=== PATIENT | male | born 1995 | race Caucasian/White ===

== ENCOUNTER 2019-09-22 22:05 | Emergency (ER) | payer OTHER ==
[~2019-09-22] VITALS: Ht 162.6 cm; Wt 68.0 kg
[2019-09-22 22:05] VITALS: BP 134/76
--- NOTE | 2019-09-22 22:05 | NUR ---
PT GRACIELA ALS. TAKEN TO BED 4
--- NOTE | 2019-09-22 22:10 | NUR ---
BROUGHT IN BY AMBULANCE , FOUND IN SOMEONES YARD, BY STANDER CALLED 911, WITH SLURRED SPEECH.PATIENT ETOH
--- NOTE | 2019-09-22 22:22 | NUR ---
Dr. Zhang examining patient.
[2019-09-22] MEDS ORDERED: NACL 0.9% 1,000 ML IV ONE (22:25)
[2019-09-22 22:45] LABS: BASOPHILS # (AUTO) 0.1 K/uL (0.00-0.22); BASOPHILS % (AUTO) 0.6 % (0.0-2.0); EOSINOPHILS # (AUTO) 0.1 K/uL (0-0.4); EOSINOPHILS % (AUTO) 0.7 % (0.0-4.0); HEMATOCRIT 48.4 % (36-52); HEMOGLOBIN 16.6 g/dL (12.0-18.0); LYMPHOCYTES # (AUTO) 2.4 K/uL (2.0-11.5); MEAN CORPUSCULAR HEMOGLOBIN 32 pg (27-31); MEAN CORPUSCULAR HGB CONC 34 g/dL (33-37); MONOCYTES # (AUTO) 0.6 K/uL (0.8-1.0); MONOCYTES % (AUTO) 6.1 % (1.7-9.3); NEUTROPHILS % (AUTO) 66.6 % (42.2-75.2); PLATELET COUNT (AUTO) 261 K/uL (140-450); RED BLOOD CELL COUNT(AUTO) 5.26 MIL/uL (4.20-6.10); RED CELL DISTRIBUTION WIDTH 13.4 % (11.6-13.7)
[2019-09-22 23:09] LABS: ALBUMIN 4.8 g/dL (3.4-5.0); ANION GAP 14.8 (8-16); ASPARTATE AMINOTRANSFERASE 13 U/L (15-37); CARBON DIOXIDE 26.6 mmol/L (21-32); CHLORIDE 106 mmol/L (98-107); CREATININE 0.7 mg/dL (0.6-1.3); GFR ARICAN-AMERICAN 181 mL/min (>90); GLUCOSE 109 mg/dL (74-106); POTASSIUM 3.4 mmol/L (3.5-5.1); SODIUM SERUM 144 mmol/L (136-145); TOTAL BILIRUBIN 0.4 mg/dL (0.0-1.0); UREA NITROGEN, BLOOD 10 mg/dL (7-18)
[2019-09-22 23:23] LABS: SALICYLATE < 2.8 mg/dL (2.8-20.0)
[2019-09-22 23:24] LABS: ACETAMINOPHEN < 0.5 ug/ml (10-30)
--- NOTE | 2019-09-23 00:05 | NUR ---
RESULTS BACK AND NOTED BY ERMD AND FOR D/C
[2019-09-23 00:25] LABS: BARBITURATE, URINE NEG. ng/ml (NEG <=200); BENZODIAZEPINE, URINE NEG. ng/mL (NEG <=200); CANNABINOID, URINE POS. ng/mL (NEG <=50); COCAINE, URINE NEG. ng/mL (NEG <=300); OPIATE, URINE NEG. ng/mL (NEG <=2000); PHENCYCLIDINE SCREEN,URINE NEG. ng/mL (NEG <=25)
[2019-09-23 00:35] VITALS: BP 134/76
--- NOTE | 2019-09-23 00:35 | NUR ---
Patient discharged with v/s stable. Written and verbal after care instructions given and explained. Patient verbalized understanding. Ambulatory with steady gait. All questions addressed prior to discharge. Advised to follow up with PMD.
--- NOTE | 2019-09-23 11:52 | NUR ---
Late entry. Confirmed with RN that 0.9 NS IV completed at 2341
== END 2019-09-23 00:35 | disposition home or self-care (01) ==
LOC: MED 22:05
DX: F10.129 Alcohol abuse with intoxication, unspecified (principal); Y90.8 Blood alcohol level of 240 mg/100 ml or more
CPT/HCPCS: 36415; 80053; 80305; 85025; 99283; G0480; G0482; J7030